=== PATIENT | female | born 1955 | race Caucasian/White ===

== ENCOUNTER 2019-01-26 23:57 | Emergency (ER) | payer MEDICARE ==
[2019-01-27] MEDS ORDERED: MORPHINE SULFATE IR 15 MG TABLET PO ONE (01:00)
[2019-01-27] MEDS ORDERED: ACETAMINOPHEN 325 MG TABLET PO ONE (01:00)
[2019-01-27] MEDS ORDERED: DIPH/PERTUSS(ACELL)/TETANUS VAC/PF 0.5 ML SYR (>=10YO) IM ONE (01:00)
--- NOTE | 2019-01-27 01:50 | RADIOLOGY REPORT (SQ) ---
EXAM DESCRIPTION: CT HEAD WITHOUT IV CONTRAST COMPLETED DATE/TME: 01/27/2019 00:59 CLINICAL HISTORY: 63 years, Female, fall, head trauma COMPARISON: None. TECHNIQUE: Axial CT images of the head were obtained without contrast. Sagittal and coronal reformats were performed. DLP 1150 Images stored on PACS. All CT scanners at this facility use dose modulation, iterative reconstruction, and/or weight based dosing when appropriate to reduce radiation dose to as low as reasonably achievable (ALARA). [facility]: Dose Right [facility]: CareDose [facility]: Dose Right [facility]: Teradose 4D [facility]: [employer] LIMITATIONS: None. FINDINGS: There is mild soft tissue swelling along the right forehead. There is no acute cortical infarct, hemorrhage, mass, edema, hydrocephalus, or extra-axial fluid collection. There is cephalization along the left frontal lobe. The anders-white matter differentiation is preserved. There is mild diffuse cerebral atrophy with mild periventricular and deep white matter chronic microvascular changes. The paranasal sinuses and mastoid air cells are clear. There is no acute fracture. IMPRESSION: No acute intracranial abnormality TECHNICAL DOCUMENTATION: Quality ID # 436: Final reports with documentation of one or more dose reduction techniques (e.g., Automated exposure control, adjustment of the mA and/or kV according to patient size, use of iterative reconstruction technique) copyright 2011 [employer]- All Rights Reserved
--- NOTE | 2019-01-27 01:52 | RADIOLOGY REPORT (SQ) ---
EXAM DESCRIPTION: CT MAXILLOFACIAL WITHOUT IV CONTRAST COMPLETED DATE/TME: 01/27/2019 00:59 CLINICAL HISTORY: 63 years, Female, fall, facial trauma COMPARISON: None. TECHNIQUE: Axial CT images of the maxillofacial region were obtained without contrast. Sagittal and coronal reformats were performed. DLP 621 Images stored on PACS. All CT scanners at this facility use dose modulation, iterative reconstruction, and/or weight based dosing when appropriate to reduce radiation dose to as low as reasonably achievable (ALARA). [facility]: Dose Right [facility]: CareDose [facility]: Dose Right [facility]: Teradose 4D [facility]: [employer] LIMITATIONS: None. FINDINGS: There is mild soft tissue swelling along the right forehead. The globes are intact. There is no retro-orbital hematoma. The orbits are intact. The maxilla and mandible are intact. The zygomatic arches are intact. The nasal bones are intact. The paranasal sinuses are clear. IMPRESSION: Mild soft tissue swelling along the right forehead. No CT evidence of acute maxillofacial fracture. TECHNICAL DOCUMENTATION: Quality ID # 436: Final reports with documentation of one or more dose reduction techniques (e.g., Automated exposure control, adjustment of the mA and/or kV according to patient size, use of iterative reconstruction technique) copyright 2010 [employer]- All Rights Reserved
--- NOTE | 2019-01-27 02:28 | RADIOLOGY REPORT (SQ) ---
EXAM DESCRIPTION: XR WRIST 3 OR MORE VIEWS COMPLETED DATE/TME: 01/27/2019 00:59 CLINICAL HISTORY: 63 years, Female, fall, trauma COMPARISON: None. NUMBER OF VIEWS: Three TECHNIQUE: Three views of the left wrist LIMITATIONS: None. FINDINGS: The bones are demineralized. There is a mildly displaced fracture involving the distal radius with extension into the radiocarpal joint. The distal ulna and carpal bones appear intact. There is soft tissue swelling surrounding the wrist. IMPRESSION: Mildly displaced fracture involving the distal radius with intra-articular extension copyright 2010 [employer]- All Rights Reserved
--- NOTE | 2019-01-27 02:30 | RADIOLOGY REPORT (SQ) ---
EXAM DESCRIPTION: XR KNEE 1-2 VIEWS BILATERAL COMPLETED DATE/TME: 01/27/2019 00:59 CLINICAL HISTORY: 63 years, Female, fall, trauma COMPARISON: None. NUMBER OF VIEWS: Four TECHNIQUE: Two views of the bilateral knees LIMITATIONS: None. FINDINGS: The bones are demineralized. There is no acute fracture or dislocation of either knee. There is bilateral medial compartment joint space narrowing with mild subchondral sclerosis. No significant joint effusion. No large soft tissue swelling. IMPRESSION: No acute fracture or dislocation copyright 2010 [employer]- All Rights Reserved
--- NOTE | 2019-01-27 02:31 | RADIOLOGY REPORT (SQ) ---
EXAM DESCRIPTION: XR HAND 3 OR MORE VIEWS COMPLETED DATE/TME: 01/27/2019 00:59 CLINICAL HISTORY: 63 years, Female, fall, trauma COMPARISON: None. NUMBER OF VIEWS: Three TECHNIQUE: Three views of the left hand LIMITATIONS: None. FINDINGS: The bones are demineralized. There is a widely displaced fracture involving the distal radius with intra-articular extension. No other fracture is identified. There is mild soft tissue swelling surrounding the wrist. IMPRESSION: Mildly displaced fracture of the distal radius with intra-articular extension copyright 2010 [employer]- All Rights Reserved
--- NOTE | 2019-01-27 03:17 | ER Document Report ---
ED General - General Chief Complaint: Fall Injury Stated Complaint: FALL Time Seen by Provider: 01/27/19 00:35 Primary Care Provider: NORBERTO CANCINO DO [ACTIVE STAFF] - Follow up in 3-5 days Cannot obtain history due to: Dementia Notes: Patient is a 63-year-old female history of early and progressive dementia who presents after mechanical fall. Apparently the patient tripped over a stone he dge in the yard falling forward. She was found on the ground by her . He states that she had struck the right side of her face and had some swelling to her left wrist. She also had abrasions over her bilateral knees. States that he took her inside, gave her a Percocet and she seemed to be doing relatively well in terms of pain until he tried to get up to go to the bedroom for nighttime. He states that she was moaning and appeared very uncomfortable and he noticed increasing swelling to the left wrist prompting him to come to the emergency department. The patient is not able to provide any history secondary to her very advanced dementia. TRAVEL OUTSIDE OF THE [place] IN LAST 30 DAYS: No - Related Data Allergies/Adverse Reactions: No Known Allergies Allergy (Verified 01/27/19 00:55) Past Medical History - General Information source: Relative Cannot obtain history due to: Dementia - Social History Smoking Status: Never Smoker Frequency of alcohol use: None Drug Abuse: None Lives with: Spouse/Significant other Family History: Reviewed & Not Pertinent Patient has suicidal ideation: No Patient has homicidal ideation: No Renal/ Medical History: Denies: Hx Peritoneal Dialysis Past Surgical History: Reports: Hx Hysterectomy, Hx Thyroid Surgery - thyroidectomy Review of Systems - Review of Systems Notes: Constitutional: Negative for fever. Eyes: Negative for visual changes. ENT: Positive for facial injury Cardiovascular: Negative for chest injury. Respiratory: Negative for shortness of breath. Gastrointestinal: Negative for abdominal injury. Genitourinary: Negative for genital injury Musculoskeletal: Positive for left wrist injury Skin: Positive for laceration/abrasions. Neurological: Positive for head injury. Physical Exam - Vital signs Vitals: Temp Pulse Resp BP Pulse Ox 97 F L 89 16 110/85 100 01/27/19 00:07 01/27/19 00:07 01/27/19 00:07 01/27/19 00:07 01/27/19 00:07 Notes: PHYSICAL EXAMINATION: GENERAL: Appears moderately uncomfortable, in no acute distress HEAD: Abrasions and traumatic ecchymosis over the right forehead, right periorbital space EYES: Pupils equal round and reactive to light, extraocular movements intact, sclera anicteric, conjunctiva are normal. ENT: nares patent, no oral pharyngeal trauma. No hemotympanum, no Watts's sign, no raccoon eyes. NECK: No midline cervical spine tenderness. Patient able to move their head to 45 bilaterally without any discomfort. LUNGS: Breath sounds clear to auscultation bilaterally and equal. No wheezes rales or rhonchi. HEART: Regular rate and rhythm without murmurs. CHEST WALL: No ecchymosis over the chest wall. ABDOMEN: Soft, nontender, normoactive bowel sounds. No guarding, no rebound. No abdominal bruising EXTREMITIES: There is traumatic ecchymosis over the surfaces of the patellas bi laterally. There is mild swelling of the left wrist with a possible associated deformity. Patient is unable to comply with range of motion testing secondary to cognitive impairment. BACK: No midline spinal tenderness, step-offs, or deformities. NEUROLOGICAL: does move all his 20s but has difficulty following commands. PSYCH: Alert but not oriented no abdominal bruising SKIN: Warm, Dry, normal turgor, multiple abrasions scattered across the right forehead right periorbital space. Abrasions over the knees bilaterally. Course - Re-evaluation Re-evalutation: 01/27/19 03:15 Presentation of a well appearing elderly patient in no acute distress, vitals within normal limits after a mechanical fall. Patient is profoundly demented, does provide history. No focal neurologic deficits on exam, no evidence of basilar skull fracture on exam without evidence of hemotympanum, raccoon eyes, or periauricular hematoma. No papilledema. Patient is not on anticoagulation. No loss of consciousness. No episodes of vomiting. However, based on patient's demented status and difficulty obtaining proper mental status assessment a CT of the head has been obtained which is negative for any acute intracranial bleed. Patient negative by Nexus criteria for cervical spine injury. CT of the face patient had multiple areas of abrasions and soft tissue contusions over the right forehead, right periorbital space and is noted to be negative for any acute fractures. Knee x-rays were obtained as patient did have ecchymosis over the bilateral patellar surfaces and these are likewise noted to be normal. The patient did have a deformity and swelling of the left wrist and x-ray does show a distal radius fracture with intra-articular extension. No need for reduction. Neurovascularly intact, with strong 2+ DP pulse. Capillary refill less than 1 second in all digits of the left hand. Sugar tong splint was placed and patient has been instructed to follow-up with orthopedic surgery regarding this injury. Chest and abdominal exam are benign without any focal tenderness, shortness of breath, or bruising over the chest or abdominal wall. Patient has no flank tenderness. At this time will discharge with return precautions and follow-up recommendations. Verbal discharge instructions given a the bedside and opportunity for questions given. Medication warnings reviewed. is in agreement with this plan and has verbalized understanding of return precautions and the need for primary care follow-up in the next 24-72 hours. 01/27/19 03:34 - Vital Signs Vital signs: Temp Pulse Resp BP Pulse Ox 97 F L 89 20 126/95 H 99 01/27/19 00:07 01/27/19 00:07 01/27/19 02:01 01/27/19 02:01 01/27/19 02:01 - Diagnostic Test Radiology reviewed: Image reviewed, Reports reviewed Radiology results interpreted by me: 01/27/19 03:17 CT head: No acute intracranial bleed or mass Left wrist x-ray: Left distal radius fracture Procedures - Immobilization Left Wrist Pre-Proc Neuro Vasc Exam: Normal Immobilizer type: Sugar tong Performed by: Provider assisted Post-Proc Neuro Vasc Exam: Normal Alignment checked and good: Yes Discharge - Discharge Clinical Impression: Abrasions of multiple sites Fracture of left distal radius Qualifiers: Encounter type: initial encounter Fracture type: closed Fracture morphology: unspecified fracture morphology Qualified Code(s): S52.502A - Unspecified fracture of the lower end of left radius, initial encounter for closed fracture Facial trauma Qualifiers: Encounter type: initial encounter Qualified Code(s): S09.93XA - Unspecified injury of face, initial encounter Fall Qualifiers: Encounter type: initial encounter Qualified Code(s): W19.XXXA - Unspecified fall, initial encounter Head trauma Qualifiers: Encounter type: initial encounter Qualified Code(s): S09.90XA - Unspecified injury of head, initial encounter Condition: Good Disposition: HOME, SELF-CARE Additional Instructions: You have been seen in the Emergency Department (ED) today following a fall. Your workup today did not reveal any injuries that require you to stay in the hospital. You do however have a fracture of your left distal radius which is one of your wrist bones. Keep the splint in place until you follow-up with orthopedic surgery. Please follow-up with orthopedic surgery within the next 3 to 5 days. For your pain: Take ibuprofen 600 mg and acetaminophen 1000 mg every 6 hours together as needed for pain. If this does not control your pain you may take 15 mg of oral morphine every 6 hours as needed. Please be very careful about using the oral morphine and only use this for severe pain. You can apply a hot pack or electric heating pad to the sore areas. You can also use topical "Aspercreme with lidocaine" to sore areas as needed. Call your doctor or return to the ED if you develop a sudden or severe headache, confusion, slurred speech, facial droop, weakness or numbness in any arm or leg, extreme fatigue, vomiting more than two times, severe abdominal pain, or other symptoms that concern you. Prescriptions: Morphine Sulfate [Morphine Ir 15 mg Tablet] 15 mg PO Q6HP PRN #12 tablet PRN Reason: Referrals: NORBERTO CANCINO DO [ACTIVE STAFF] - Follow up in 3-5 days
[2019-01-27] MEDS ORDERED: ACETAMINOPHEN 325 MG TABLET ONE (03:53)
[2019-01-27 04:05] VITALS: BP 121/76
== END 2019-01-27 04:05 | disposition home or self-care (01) ==
LOC: ER 23:57
PROC: 2W3DX1Z Immobilization of Left Lower Arm using Splint (ICD-10-PCS; principal; 2019-01-26)
DX: S52.502A Unspecified fracture of the lower end of left radius, initial encounter for closed fracture (principal); S09.93XA Unspecified injury of face, initial encounter; S09.90XA Unspecified injury of head, initial encounter; F03.90 Unspecified dementia, unspecified severity, without behavioral disturbance, psychotic disturbance, mood disturbance, and anxiety; M25.532 Pain in left wrist; M79.89 Other specified soft tissue disorders; W01.0XXA Fall on same level from slipping, tripping and stumbling without subsequent striking against object, initial encounter; Y92.009 Unspecified place in unspecified non-institutional (private) residence as the place of occurrence of the external cause
CPT/HCPCS: 99283; 90471; 73130; 73110; 73560; 70450; 70486; 90715; 29125; A9270 ×2